=== PATIENT | female | born 2000 | race African-American/Black ===

== ENCOUNTER 2020-11-04 12:53 | Emergency (ER) | payer OTHER ==
[~2020-11-04] VITALS: Ht 167.6 cm; Wt 70.3 kg
[2020-11-04 13:01] VITALS: BP 112/78; Ht 167.6 cm; Wt 70.3 kg
[2020-11-04 15:51] LABS: microscopic required? NO
[2020-11-04 16:26] LABS: UA SPECIFIC GRAVITY <=1.005 (1.005-1.035); urine erythrocyte NEGATIVE (NEGATIVE)
[2020-11-04 16:35] LABS: PLATELET COUNT 293 x10^3mcL (179-408)
[2020-11-04 16:44] LABS: RED CELL DISTRIBUTION WIDTH 14.6 % (12.3-17.7)
[2020-11-04 16:47] LABS: AMPHETAMINE QUAL UR NONE DETECTED (See below)
[2020-11-04 16:48] LABS: CALCIUM 9.8 mg/dL (8.5-10.1); CARBON DIOXIDE 27.1 mmol/L (21-32); CHLORIDE SERUM 100 mmol/L (98-107); CREATININE SERUM 0.7 mg/dL (0.6-1.0); GFR1 > 60 mL/min; GLUCOSE SERUM 79 mg/dL (74-106); POTASSIUM SERUM 4.1 mmol/L (3.5-5.1); SODIUM SERUM 137 mmol/L (136-145)
[2020-11-04 16:54] LABS: ALKALINE PHOSPHATASE 47 U/L (46-116); ALT/SGPT 37 U/L (14-59); AST/SGOT 21 U/L (15-37); BILIRUBIN TOTAL 0.42 mg/dL (0.20-1.00); LIPASE 92 IU/L (73-393)
[2020-11-04 16:56] LABS: TOTAL PROTEIN, SERUM 8.7 g/dL (6.4-8.2)
== END 2020-11-04 18:40 | disposition home or self-care (01) ==
LOC: ED 12:53
PROVIDERS: Emergency Medicine
DX: R10.9 Unspecified abdominal pain (principal); R11.2 Nausea with vomiting, unspecified; E11.9 Type 2 diabetes mellitus without complications
CPT/HCPCS: 82962; Q0162